=== PATIENT | male | born 1965 ===

== ENCOUNTER 2018-12-15 09:38 | Outpatient (CLI) | payer OTHER | END 2018-12-15 09:41 | disposition home or self-care (01) | LOC: SONOGRAMA 09:38 | DX: M75.122 Complete rotator cuff tear or rupture of left shoulder, not specified as traumatic (principal); M25.512 Pain in left shoulder ==

== ENCOUNTER 2019-07-20 10:29 | Outpatient (CLI) | payer OTHER | END 2019-07-20 10:38 | disposition home or self-care (01) | LOC: RAD 10:29 | DX: R07.89 Other chest pain (principal) ==